=== PATIENT | male | born 1990 | race Caucasian/White ===

== ENCOUNTER 2019-09-19 19:23 | Emergency (ER) | payer SELFPAY ==
[2019-09-19] MEDS ORDERED: Diphtheria,Pertussis(Acell),Tetanus Vaccine 0.5 ML Syringe IM ONE (19:48)
[2019-09-19] MEDS ORDERED: Bupivacaine 0.5% 10 ML SDV INJECT ONE (19:48)
--- NOTE | 2019-09-19 19:58 | EDM.PDOC ---
ED HPI GENERAL MEDICAL PROBLEM - General Chief Complaint: Laceration Stated Complaint: RIGHT HAND CUT Time Seen by Provider: 09/19/19 19:26 Source of Information: Reports: Patient History Limitations: Reports: No Limitations - History of Present Illness INITIAL COMMENTS - FREE TEXT/NARRATIVE: HISTORY AND PHYSICAL: History of present illness: Patient is a 28-year-old male who presents to the ED today with concern of finger laceration that occurred just prior to arrival to the ED. Patient states he was working in the back of a pickup when he slipped out of the pickup and went to grab to reach something to catch himself. Patient states he reached and grabbed a barbed wire fence and cut his right hand middle finger. Patient states he is not up-to-date on his tetanus vaccine. Patient states he did not hit his head or lose consciousness. Patient denies any other symptoms or concerns. Patient denies fever, chills, chest pain, shortness of breath, or cough. Denies headache, neck stiff ness, change in vision, syncope, or near syncope. Denies nausea, vomiting, abdominal pain, diarrhea, constipation, or dysuria. Has not noted any blood in urine or stool. Patient has been eating and drinking appropriately. Review of systems: As per history of present illness and below otherwise all systems reviewed and negative. Past medical history: As per history of present illness and as reviewed below otherwise noncontributory. Surgical history: As per history of present illness and as reviewed below otherwise noncontributory. Social history: See social history for further information Family history: As per history of present illness and as reviewed below otherwise noncontributory. Physical exam: General: Patient is alert, oriented, and in no acute distress. Patient sitting comfortably on exam table. HEENT: Atraumatic, normocephalic, pupils equal and reactive bilaterally, negative for conjunctival pallor or scleral icterus, mucous membranes moist, TMs normal bilaterally, throat clear, neck supple, nontender, trachea midline. No drooling or trismus noted. No meningeal signs. No hot potato voice noted. Lungs: Clear to auscultation, breath sounds equal bilaterally, chest nontender. Heart: S1S2, regular rate and rhythm without overt murmur Abdomen: Soft, nondistended, nontender. Negative for masses or hepatosplenomegaly. Negative for costovertebral tenderness. Pelvis: Stable nontender. Genitourinary: Deferred. Rectal: Deferred. Skin: Intact, warm, dry. No lesions or rashes noted. Extremities: Patient has full range of motion of all digits on right hand without deficit. There is a 3cm gaping laceration of the mid digit, volar aspect of the right hand 3rd digit without bleeding. Otherwise, atraumatic, negative for cords or calf pain. Neurovascular unremarkable. Neuro: Awake, alert, oriented. Cranial nerves II through XII unremarkable. Cerebellum unremarkable. Motor and sensory unremarkable throughout. Exam nonfocal. Notes: Discussed importance for follow-up with primary care provider. Voices understanding and is agreeable to plan of care. Denies any further questions or concerns at this time. Diagnostics: hand XR Therapeutics: Sutures, lidocaine, bupivacaine, tdap, finger splint w/sterile dressing placed by nursing staff Prescription: None Impression: Finger laceration, right hand, 3rd digit Plan: 1. Keep the area clean and dry. Continue to monitor for signs of infection as discussed. Sutures to be removed in 7-10 days. 2. Tylenol and/or ibuprofen as directed and as needed for pain management and discomfort. 3. Please follow-up with your primary care provider as discussed. Return to the ED as needed and as discussed. Definitive disposition and diagnosis as appropriate pending reevaluation and review of above. Right Middle finger Pain Score (Numeric/FACES): 2 - Related Data Allergies Allergy/AdvReac Type Severity Reaction Status Date / Time morphine Allergy Vomiting Verified 09/19/19 19:37 oxycodone Allergy Vomiting Verified 09/19/19 19:37 Home Meds: Home Meds . [No Known Home Meds] 09/19/19 [History] Past Medical History - Past Health History Medical/Surgical History: Denies Medical/Surgical History Other Hematologic History: "blood infection" when dog was rolling in a eal and patient touched dog to clean him up. - Infectious Disease History Infectious Disease History: Reports: MRSA - Past Surgical History Other Musculoskeletal Surgeries/Procedures:: Drained Left Knee. Social & Family History - Tobacco Use Smoking Status *Q: Current Every Day Smoker Years of Tobacco use: 15 Packs/Tins Daily: 0.1 - Caffeine Use Caffeine Use: Reports: Energy Drinks - Recreational Drug Use Recreational Drug Type: Reports: Marijuana/Hashish ED ROS GENERAL - Review of Systems Review Of Systems: Comprehensive ROS is negative, except as noted in HPI. ED EXAM, SKIN/RASH Exam: See Below (see dictation) ED SKIN PROCEDURES - Laceration/Wound Repair Right Digit - 3rd (Middle) Appearance: Subcutaneous, Linear, Mildly Contaminated Distal NVT: Neuro & Vascular Intact, No Tendon Injury Local Anesthesia - Lidocaine (Xylocaine): 1% Plain Local Anesthesia - Bupivicaine (Marcaine): 0.5% Plain Local Anesthetic Volume: Other (10cc) Skin Prep: Chlorhexidine (Hibiciens), Providone-Iodine (Betadine), Saline Saline Irrigation (cc's): 100 Exploration/Debridement/Repair: Wound Explored, In a Bloodless Field, Explored to Base, No Foreign Material Found Closed with: Sutures Lac/Wound length In cm: 3 Suture Size: 4-0 # of Sutures: 7 Suture Type: Silk, Interrupted Drain Placement: No Sterile Dressing Applied: Nurse Tetanus Status Addressed: Yes Complications: No Course - Vital Signs Last Recorded V/S: Last Vital Signs Temp 96.9 F 09/19/19 19:37 Pulse 88 09/19/19 19:37 Resp 16 09/19/19 19:37 BP 142/85 H 09/19/19 19:37 Pulse Ox 95 09/19/19 19:37 - Orders/Labs/Meds Orders: Active Orders 24 hr Category Date Time Status Vaccines to be Administered [RC] PER UNIT ROUTINE Care 09/19/19 19:48 Active Meds: Medications Discontinued Medications Generic Name Dose Route Start Last Admin Trade Name Maricruz PRN Reason Stop Dose Admin Bupivacaine HCl 10 ml 09/19/19 19:48 09/19/19 20:00 Sensorcaine-Mpf 0.5% INJECT 09/19/19 19:49 10 ml ONETIME ONE Administration Diphtheria/Tetanus/Acell Pertussis 0.5 ml 09/19/19 19:48 09/19/19 19:59 Adacel IM 09/19/19 19:49 0.5 ml .ONCE ONE Administration Lidocaine HCl 5 ml 09/19/19 19:48 09/19/19 20:01 Xylocaine-Mpf 1% INJECT 09/19/19 19:49 5 ml ONETIME ONE Administration Departure - Departure Time of Disposition: 20:41 Disposition: Home, Self-Care 01 Clinical Impression: Finger laceration Qualifiers: Encounter type: initial encounter Finger: middle finger Damage to nail status: without damage Foreign body presence: without foreign body Laterality: right Qualified Code(s): S61.212A - Laceration without foreign body of right middle finger without damage to nail, initial encounter - Discharge Information Referrals: PCP,None [Primary Care Provider] - Forms: ED Department Discharge Additional Instructions: The following information is given to patients seen in the emergency department who are being discharged to home. This information is to outline your options for follow-up care. We provide all patients seen in our emergency department with a follow-up referral. The need for follow-up, as well as the timing and circumstances, are variable depending upon the specifics of your emergency department visit. If you don't have a primary care physician on staff, we will provide you with a referral. We always advise you to contact your personal physician following an emergency department visit to inform them of the circumstance of the visit and for follow-up with them and/or the need for any referrals to a consulting specialist. The emergency department will also refer you to a specialist when appropriate. This referral assures that you have the opportunity for follow-up care with a specialist. All of these measure are taken in an effort to provide you with optimal care, which includes your follow-up. Under all circumstances we always encourage you to contact your private physician who remains a resource for coordinating your care. When calling for follow-up care, please make the office aware that this follow-up is from your recent emergency room visit. If for any reason you are refused follow-up, please contact the [facility] Emergency Department at and asked to speak to the emergency department charge nurse. [facility] [address] [place] [id number] [id number] 1. Keep the area clean and dry. Continue to monitor for signs of infection as discussed. Sutures to be removed in 7-10 days. 2. Tylenol and/or ibuprofen as directed and as needed for pain management and discomfort. 3. Please follow-up with your primary care provider as discussed. Return to the ED as needed and as discussed. Sepsis Event Note - Evaluation Sepsis Screening Result: No Definite Risk - Focused Exam Vital Signs: Vital Signs Temp Pulse Resp BP Pulse Ox 09/19/19 19:37 96.9 F 88 16 142/85 H 95 Date Exam was Performed: 09/19/19 Time Exam was Performed: 20:40 - My Orders Last 24 Hours: My Active Orders 09/19/19 19:48 Vaccines to be Administered [RC] PER UNIT ROUTINE - Assessment/Plan Last 24 Hours: My Active Orders 09/19/19 19:48 Vaccines to be Administered [RC] PER UNIT ROUTINE
--- NOTE | 2019-09-19 20:25 | CR ---
INDICATION: Middle finger laceration. FINDINGS: Three views of the right hand show no evidence of acute fracture or dislocation. No other bony or soft tissue abnormalities identified. Dictated by Efraín Arrington MD @ 09/19/2019 8:24:26 PM Dictated by: Efraín Arrington MD @ 09/19/2019 20:24:32 (Electronically Signed)
== END 2019-09-19 20:10 | disposition home or self-care (01) ==
LOC: MW.ED 19:23
DX: S61.212A Laceration without foreign body of right middle finger without damage to nail, initial encounter (principal); Z23 Encounter for immunization; F17.210 Nicotine dependence, cigarettes, uncomplicated; Z88.5 Allergy status to narcotic agent; W18.40XA Slipping, tripping and stumbling without falling, unspecified, initial encounter
CPT/HCPCS: 12002; 73130; 90471; 90715; 99283; J2001; J3490; 99282